=== PATIENT | male | born 1960 | race Caucasian/White ===

== ENCOUNTER → 2020-08-26 | Outpatient (CLI) | payer OTHER ==
--- NOTE | 2020-08-26 16:04 | RAD ---
CT of sinuses without contrast 08/26/2020 HISTORY: Reason: NOSE OBSTRUCTION COMPARISON: None Technique: Multidetector CT imaging of the paranasal sinuses is obtained without contrast FINDINGS: Limited visualization of the globes and orbits is unremarkable. No fractures identified. Ma stoid air cells are clear. Nasal sinuses demonstrate no mucosal thickening, or fluid levels. No erosi ve or hyperplastic osseous changes are identified. There is mild leftward deviation of the nasal sept um anteriorly the cartilaginous portion of the septum is deviated towards the left,. There is mild hy pertrophy of the right inferior nasal turbinate. The postsurgical changes of the sinuses patent ostiomeatal units. No other acute abnormalities are se en. IMPRESSION: 1. No evidence of sinusitis 2. Mild leftward nasal septal deviation 3. Mild hypertrophic changes of the inferior turbinate on the right CT DOSING PQRS STATEMENT: One or more of the following individualized dose reduction techniques were utilized for this examinat ion: 1. Automated exposure control 2. Adjustment of the mA and/or kV according to patient size 3. Use of iterative reconstruction technique Electronically signed by: Raffaele Vizcarra MD (08/26/2020 4:01 PM) [id number]
== END ==
LOC: CT 11:14
PROVIDERS: ATTEND Otolaryngology
DX: J34.2 Deviated nasal septum (principal); J34.89 Other specified disorders of nose and nasal sinuses
CPT/HCPCS: 70486